=== PATIENT | female | born 1960 | race Caucasian/White ===

== ENCOUNTER 2023-11-16 11:57 | Observation (INO) ==
[~2023-11-16 11:57] MED LIST: HYDROmorphone 1 MG/1 ML SYRINGE IV PRN; Naloxone 0.4 mg VIAL 0.4 mg/ml 1 ml VIAL IV PRN; Ondansetron 4 mg VIAL 2 MG/ML 2 ml VIAL IV PRN; fentaNYL 100 mcg/2 ml 50 MCG/ML VIAL IV PRN
[2023-11-16] MEDS ORDERED: ceFAZolin 2 GM PREMIX 2 GM/50 ML BAG ONE (12:30)
[2023-11-16] MEDS ORDERED: Buffered Lidocaine 1% SYRIN 1 ml ONE (12:30)
[2023-11-16 12:44] LABS: Rapid COVID-19 Molecular Undetected (Undetected)
[2023-11-16] MEDS: Lactated Ringers 1000 ml BAG 1,000 ML IV SCH ×2 (12:59→18:44)
[2023-11-16] MEDS: Buffered Lidocaine 1% SYRIN 1 ml INTRADERM ONE (12:59)
[2023-11-16] MEDS ORDERED: Dexamethasone IV 4 MG/ML VIAL 1 ml VIAL ONE (13:12)
[2023-11-16] MEDS ORDERED: ROPIVACAINE 5 MG/ML 30 ML BTL (0.5%) ONE ×2 (13:12→13:50)
[2023-11-16] MEDS ORDERED: Midazolam 2 mg/2 ml VIAL 1 mg/ml 2 ml VIAL (2 mg) ONE (13:12)
[2023-11-16] MEDS ORDERED: Lidocaine 2% PF 5 ML VIAL ONE (14:24)
[2023-11-16] MEDS ORDERED: Propofol 10 MG/ML 20 ML BTL ONE ×3 (14:26→15:40)
[2023-11-16] MEDS ORDERED: Tranexamic Acid 1 GM/100ML BAG 2,000 MG/200 ML BAG IV ONE (14:31)
[2023-11-16] MEDS ORDERED: Ondansetron 4 mg VIAL 2 MG/ML 2 ml VIAL IV PRN (16:49)
[2023-11-16] MEDS ORDERED: Ondansetron ODT 4 mg TAB 4 MG TAB PO PRN (16:49)
[2023-11-16] MEDS ORDERED: Lactulose 30 ml UDC PO PRN (16:49)
[2023-11-16] MEDS ORDERED: Morphine 2 MG/ML SYRINGE IV PRN (16:49)
[2023-11-16] MEDS ORDERED: Magnesium Hydroxide LIQ 30 ML UDC PO PRN (16:49)
[2023-11-16] MEDS: Magnesium Hydroxide LIQ 30 ML UDC PO SCH (22:11)
[2023-11-16] MEDS: ceFAZolin 1 GM ADVAN 1 GM in NS 0.9% 50 ML 50 ML IVPB SCH (22:47)
[2023-11-17 06:43] LABS: Hemoglobin 12.9 g/dL (11.5-14.3); Mean Platelet Volume 7.9 fL (7.5-11.2); Platelet Count 275 10^3/uL (150-450)
[2023-11-17 07:02] LABS: Calcium 9.3 mg/dL (8.6-10.3); Creatinine, Serum 1.12 mg/dL (0.51-0.95); Potassium 3.4 mmol/L (3.5-5.0); eGFR CKD-EPI 55.6 (>60)
[2023-11-17] MEDS: Vitamin THERAPEUTIC TAB PO SCH (09:23)
[2023-11-17 10:05] VITALS: BP 119/77
== END 2023-11-17 14:45 | disposition home or self-care (01) ==
LOC: SSU 11:57 → OR 11:57
PROVIDERS: ADMIT Orthopaedic Surgery Adult Reconstructive Orthopaedic Surgery; ATTEND Orthopaedic Surgery Adult Reconstructive Orthopaedic Surgery